=== PATIENT | female | born 1985 | race Caucasian/White ===

== ENCOUNTER → 2017-12-02 10:57 | Outpatient (CLI) | payer SELFPAY ==
[2017-12-02 14:19] LABS: Group B Strep DNA By PCR Negative (Negative); Internal Control PASS; Probe Check PASS; Specimen Processing Control PASS
== END ==
PROVIDERS: Visit Provider Obstetrics & Gynecology
DX: Z36.85 Encounter for antenatal screening for Streptococcus B (principal)
CPT/HCPCS: 87081; 87653

== ENCOUNTER 2018-01-06 07:30 | Outpatient (CLI) | payer SELFPAY ==
[2018-01-06 08:48] VITALS: BMI 30.5
--- NOTE | 2018-01-07 08:22 | OB.TRI.NOTE ---
History of Present Illness Date of Service: 01/06/18 - 40 6/7 wk CANCELLED INDUCTION Was patient seen by the physician?: Yes Reason For Visit: NST Date of Service: 01/06/18 Final MARYBEL: 12/31/17 Gestational age: 40 Weeks and 6 Days History of Present Illness: 32 yo female , grand multip, at 40 6/7 wk presents for induction of labor postdates. Induction CANCELLED due to inadequate staff to cover induction. NST performed instead of the induction. Induction rescheduled to 01/07/18 Allergies No Known Allergies Allergy (Verified 01/07/18 08:07) NST - FHR Rate Baby A Baseline: 120-130s with accels to 155 min to avg variability Variability:: Moderate Accelerations:: 15 x 15 Decelerations:: None NST Reactive:: Yes, Appropriate for gestational age FHR Category:: Category I Uterine Activity:: Irritability, with rare UC Impression/Plan 40 6/7 wk CANCELLED INDUCTION NST reactive Home Induction rescheduled to 01/07/18
== END 2018-01-06 10:00 | disposition home or self-care (01) ==
LOC: WPOUT 08:31 → WP 08:32
PROVIDERS: Family Provider Family Medicine; PCP Family Medicine; Visit Provider Obstetrics & Gynecology
DX: O48.0 Post-term pregnancy (principal); Z3A.40 40 weeks gestation of pregnancy
CPT/HCPCS: 59025; 59050; 99218; G0378

== ENCOUNTER 2018-01-07 06:45 | Inpatient (IN) | payer SELFPAY, OTHER ==
[2018-01-07 07:05] VITALS: BMI 30.4
[2018-01-07 08:06] LABS: Hematocrit 34.6 % (37-47); Mean Corp Hgb Conc 34.7 g/gl (32-36); Mean Corpuscular Hgb 33.5 pg (27.0-32.0); Mean Corpuscular Volume 96.6 fL (81-99); Mean Platelet Vol. 10.7 fl (6.2-12.0); Platelet Count 211 K/mm3 (150-450); RBC Distribution Width CV 13.7 % (11.6-14.6); RBC Distribution Width SD 46.1 fl (35.1-43.9); Red Blood Count 3.58 M/mm3 (4.2-5.4); White Blood Count 8.3 K/mm3 (4.4-11.0)
[2018-01-07 08:13] LABS: Scan Indicated on CBC? Y/N NO
[2018-01-07] MEDS: Lactated Ringers 1,000 ML 50 ML IV ×4 (08:38→17:48)
[2018-01-07] MEDS: Oxytocin 30 units/NS 500 ml 30 UNITS/500 ML IV.SOLN IV (08:39)
--- NOTE | 2018-01-07 13:03 | PCM.PN.BLA ---
Progress Note LABOR PROGRESS NOTE Induction at 41 wks. Not feeling too uncomfortable. AVSS Pitocin at 11 mIU/min EFM 120-130s avg variability accels. Category I UCs noted q 3-4 min CX: 3+/50/-3 but vtx well applied to cervix. AROM. thin Mec stained fluid noted A/P: 41 wk induction. Continue induction of labor. anticipate Peds for delivery d/t thin mec staining.
[2018-01-07] MEDS: Nalbuphine 10 MG/ML Ampul IV ×2 (15:33→17:57)
--- NOTE | 2018-01-07 16:40 | PCM.PN.BLA ---
Progress Note 41 wk induction Feeling inc pain with UCs rates at 6-7/ 10 pain scale. S/P single dose of Nubain AVSS pitocin at 16 mIU/min EFM 120-130s with accels. Variables and early decelerations to 80-100 bpm with good return Good variability. Category I tracing UCs q 2-3 mins. CX: 5-6/75/-3 soft and stretchy A/P: 41 wk induction. recommend position changes and empty bladder to facilitate rotation and descent Anticipate .
--- NOTE | 2018-01-07 17:58 | PCM.PN.BLA ---
Progress Note LABOR PROGRESS NOTE. Induction 41 wk Feeling UCs Spent approx 1 hr hands and knees Pitocin at 18 mIU/min CX: 6 cm / 75/ -3 more centered in pelvis. Approx 6-7 cm 1 hr ago with RN check. IUPC placed UCs appear adequate EFM Category I tracing with earlies and variables UCs apppear adequate q 2 - 3 mins A/P: continue labor induction anticipate . Nubain vs nitrous oxide for relaxation. Signing out to Dr. Sheffield software application tester. RN and family aware
--- NOTE | 2018-01-07 18:01 | PN_ITS ---
Progress Note LABOR PROGRESS NOTE. Induction 41 wk Feeling UCs Spent approx 1 hr hands and knees Pitocin at 18 mIU/min CX: 6 cm / 75/ -3 more centered in pelvis. Approx 6-7 cm 1 hr ago with RN check. IUPC placed UCs appear adequate EFM Category I tracing with earlies and variables UCs apppear adequate q 2 - 3 mins A/P: continue labor induction anticipate . Nubain vs nitrous oxide for relaxation. Signing out to Dr. Sheffield search engine optimization strategist. RN and family aware
[2018-01-07] MEDS: Oxytocin 30 units/NS 500 ml 30 UNITS/500 ML IV.SOLN 334 UNITS IV (20:48)
--- NOTE | 2018-01-07 20:59 | PCM.OB.VAG ---
Vaginal Delivery Maternal Presentation: Medically Indicated Induction Method of Induction: Pitocin, Amniotomy Medical Reason for Induction: Post term Amniotic Membrane Rupture Type: Artificial Amniotic Fluid Description: Thick meconium Final MARYBEL: 12/31/17 Final MARYBEL Source: [place] <20 weeks Gestational age: 41 Weeks and 0 Days doctor who attended delivery (if requested by OB): Akila Obrien MSF reported Date of Procedure: 01/07/18 Pre-Operative Diagnosis: IUP, Postdatism Post-Operative Diagnosis: IUP, Postdatism Surgery/ Procedure Performed: Spontaneous Vaginal Delivery Type of Anesthesia: None Description of Procedure: Spontaneous vaginal delivery of a viable male with Apgars of 8/9 from an occiput anterior presentation with clear amniotic fluid and normal three-vessel placenta. Thick meconium stained fluid noted earlier in the day. No episiotomy or laceration. Sponge counts okay. Delivery physician: Eliot Sheffield MD. Presentation: Vertex Placental Delivery Description: Spontaneous Placenta Disposition: [facility] Cord Vessel Description: 3 Vessels Cord Entanglement: None Estimated Blood Loss: 250 cc A gender: Male (1 minute): 8 (5 minute): 9 Episiotomy Description: None Laceration: None Medications given after delivery: IV Pitocin, IM Methergin Complications: None
--- NOTE | 2018-01-07 21:03 | PCM.DCVAG ---
Discharge Diet: No Restrictions Discharge Activity: May Shower, May Take a Tub Bath May resume sexual activity in: 4-6 weeks Additional Activity Instructions:: Nothing in the vagina for 4-6 weeks. You may return to work/school in 6 weeks. Call your doctor if you observe: Fever of 101 or Higher, Inability to urinate, Inability to have a bowel movement, Using more than one pad per hour Additional Instructions: If you experience any of the following, contact your healthcare provider. Bleeding that soaks a pad every hour for 2 hours Unrelieved incision or abdominal pain Swelling, redness, discharge or bleeding from your incision or episiotomy site Your incision begins to separate Problems urinating (including inability to urinate or burning while urinating). Visual changes Severe headache Flu-like symptoms Pain or redness in one of both of your breasts Pain, warmth, tenderness or swelling in your legs, especially the calf area Frequent nausea and vomiting Symptoms of depression or anxiety If you experience any of the following, call 911 or go to the nearest Emergency Room. Chest pain Problems breathing Seizure activity Partial or complete paralysis of a body part, slurred speech, weakness or drooping of the face, or a sudden inability to walk or hold your balance Allergies/Adverse Reactions: Allergies No Known Allergies Allergy (Verified 01/07/18 08:07) Medications to take at Discharge Vits [Prenatabs FA] 1 tablet PO DAILY 01/07/18 Please Follow Up With: Sunita Fernandez MD - [phone] When: Call to make an appointment with your doctor in 6 weeks. Primary Care Physician: Eliot Rosales [Primary Care Provider] -
--- NOTE | 2018-01-07 21:04 | DCINST_ITS ---
Discharge Diet: No Restrictions Discharge Activity: May Shower, May Take a Tub Bath May resume sexual activity in: 4-6 weeks Additional Activity Instructions:: Nothing in the vagina for 4-6 weeks. You may return to work/school in 6 weeks. Call your doctor if you observe: Fever of 101 or Higher, Inability to urinate, Inability to have a bowel movement, Using more than one pad per hour Additional Instructions: If you experience any of the following, contact your healthcare provider. * Bleeding that soaks a pad every hour for 2 hours * Unrelieved incision or abdominal pain * Swelling, redness, discharge or bleeding from your incision or episiotomy site * Your incision begins to separate * Problems urinating (including inability to urinate or burning while urinating) . * Visual changes * Severe headache * Flu-like symptoms * Pain or redness in one of both of your breasts * Pain, warmth, tenderness or swelling in your legs, especially the calf area * Frequent nausea and vomiting * Symptoms of depression or anxiety If you experience any of the following, call 911 or go to the nearest Emergency Room. * Chest pain * Problems breathing * Seizure activity * Partial or complete paralysis of a body part, slurred speech, weakness or drooping of the face, or a sudden inability to walk or hold your balance Allergies/Adverse Reactions: Allergies No Known Allergies Allergy (Verified 01/07/18 08:07) Medications to take at Discharge Vits [Prenatabs FA] 1 tablet PO DAILY 01/07/18 Please Follow Up With: Sunita Fernandez MD - [phone] When: Call to make an appointment with your doctor in 6 weeks. Primary Care Physician: Eliot Rosales [Primary Care Provider] -
[2018-01-07] MEDS: Oxytocin 30 units/NS 500 ml 30 UNITS/500 ML IV.SOLN 167 UNITS IV (21:18)
[2018-01-07] MEDS: Methylergonovine 0.2 MG/ML Ampul IM (22:11)
[2018-01-07] MEDS: 0.9% Saline Lock 10 ML Syringe IV (22:23)
[2018-01-08 02:00] VITALS: BP 119/66; PULSE 72; RESP 18; TEMP 36.7
[2018-01-08 08:45] VITALS: BP 108/63; PULSE 62; RESP 16; TEMP 36.4; O2SAT 97
--- NOTE | 2018-01-08 10:52 | PCM.PN.OB ---
Subjective: Patient without complaints. Breast-feeding going well. Minimal vaginal bleeding. - Physical Exam Vital Signs AF, VSS Temp Pulse Resp BP Pulse Ox 97.6 F L 62 16 108/63 97 01/08/18 08:45 01/08/18 08:45 01/08/18 08:45 01/08/18 08:45 01/08/18 08:45 Oxygen Delivery Method Room Air Weight: 177 lb Body Mass Index (BMI) 30.4 Intake and Output for Last 24 Hours 01/06/18 01/07/18 01/08/18 23:59 23:59 23:59 Output Total 900 / 900 800 / 800 Balance -900 / -900 -800 / -800 Laboratory Tests Past 24 Hrs 01/07/18 22:20 Screen NEGATIVE Baby's Blood Type A POSITIVE Baby's MELI NEGATIVE Assessment/Plan Doing well. Continuing present care.
[2018-01-08 11:45] VITALS: BP 116/58; PULSE 77; RESP 18; TEMP 36.5; O2SAT 96
[2018-01-08 16:25] VITALS: BP 118/63; PULSE 77; RESP 16; TEMP 36.8; O2SAT 96
[2018-01-08 20:35] VITALS: BP 119/62; PULSE 79; RESP 18; TEMP 36.4; O2SAT 97
[2018-01-08] MEDS: FLUoxetine 20 MG Capsule PO (22:09)
--- NOTE | 2018-01-08 22:44 | NURSING ---
@ [id number] ID bands checked and verified with mother before discharge
== END 2018-01-08 22:15 | disposition home or self-care (01) | DRG 775 ==
PROVIDERS: Obstetrics & Gynecology; Admitting Provider Obstetrics & Gynecology; Family Provider Family Medicine; PCP Family Medicine; Visit Provider Obstetrics & Gynecology
DX: O48.0 Post-term pregnancy (principal); O99.344 Other mental disorders complicating childbirth; F32.9 Major depressive disorder, single episode, unspecified; O76 Abnormality in fetal heart rate and rhythm complicating labor and delivery; O77.0 Labor and delivery complicated by meconium in amniotic fluid; F41.9 Anxiety disorder, unspecified; Z3A.41 41 weeks gestation of pregnancy; Z37.0 Single live birth
CPT/HCPCS: 59025; 59050; 85027; 85461; 86850; 86900; 90384; 99218; J7120; A4216; G0378; J2790